=== PATIENT | female | born 1965 | race Caucasian/White ===

== ENCOUNTER → 2017-04-28 | Outpatient (CLI) | payer OTHER ==
[~2017-04-28] MED LIST: GABA1CAP4 PO; INSPMPHMLG; LEVO100T PO
[2017-04-28 15:31] LABS: BASO % 0.4 %; BASO ABS # 0.03 K/uL (0-0.2); EOS % 0.9 %; IG% 0.2 %; LYMPH % 25.2 %; LYMPH ABS # 2.05 K/uL (1.2-3.4); MEAN PLATELET VOLUME 10.2 fL (7.4-10.4); MONO % 8.1 %; NEUT % 65.2 %; PLATELET COUNT 247 K/uL (130-400); RED BLOOD COUNT 4.42 M/uL (4.2-5.4); WHITE BLOOD COUNT 8.13 K/uL (4.8-10.8)
[2017-04-28 15:44] LABS: COMPLETE YES; MEAN CORPUSCULAR HGB CONC 33.7 g/dl (32-36)
[2017-04-28 16:01] LABS: ALKALINE PHOSPHATASE 120 U/L (45-117); ALT/SGPT 27 U/L (12-78); AMYLASE 30 U/L (25-115); AST/SGOT 13 U/L (15-37); BLOOD UREA NITROGEN 13 mg/dl (7-18); BUN/CREATININE RATIO 15.9 (10-20); CALCIUM 9.5 mg/dl (8.5-10.1); CARBON DIOXIDE 28 mmol/L (21-32); CHLORIDE 105 mmol/L (98-107); CREATININE 0.83 mg/dl (0.60-1.20); GLUCOSE 132 mg/dl (70-99); POTASSIUM 4.1 mmol/L (3.5-5.1); SODIUM 142 mmol/L (136-145)
== END | disposition home or self-care (01) ==
LOC: C.LAB 14:59
PROVIDERS: ATTEND Family Medicine
DX: R10.9 Unspecified abdominal pain (principal); R19.7 Diarrhea, unspecified

== ENCOUNTER → 2017-10-17 | Outpatient (CLI) | payer OTHER ==
[~2017-10-17] MED LIST changes: +GABA-1219 PO; -GABA1CAP4 PO
--- NOTE | 2017-10-17 14:52 | DIAGNOSTIC IMAGING REPORT ---
L FOOT MIN 3 VIEWS CLINICAL HISTORY: 52 years-old Female presenting with LEFT FOOT PAIN. TECHNIQUE: Frontal, oblique, and lateral views of the left foot were obtained. COMPARISON: Comparison made to plain radiographs of the right foot from 2016. FINDINGS: No acute fracture or malalignment. No advanced degenerative change. No radiographic soft tissue abnormality. IMPRESSION: No acute osseous injury. Electronically signed by: Duane Mora M.D. 10/17/2017 2:51 PM Dictated Date/Time: 10/17/2017 2:50 PM
== END | disposition home or self-care (01) ==
LOC: C.RDSM 14:35
PROVIDERS: ATTEND Physician Assistant
DX: M79.672 Pain in left foot (principal)

== ENCOUNTER → 2017-10-26 | Outpatient (CLI) | payer OTHER ==
--- NOTE | 2017-10-26 15:40 | DIAGNOSTIC IMAGING REPORT ---
RIGHT HINDFOOT MRI HISTORY: RIGHT ANKLE PAIN TECHNIQUE: Multiplanar multisequence MRI of the right hindfoot was performed without the use of intravenous contrast. COMPARISON STUDY: Outside hospital right foot CT 10/19/2017. Right hindfoot MRI 09/03/2015. FINDINGS: Small amount increased signal within the distal/lateral to the Achilles tendon insertion. This is consistent with focal partial tear/tendinopathy at the distal insertion of the Achilles. There is also trace fluid surrounding the distal Achilles tendon which is similar to the prior study. Small amount of fluid at the retrocalcaneal bursa consistent with a bursitis. This is also unchanged. There is a new 8 mm cystic focus within the subcutaneous fat posterior to the heel. This favors a small ganglion cyst or superficial bursa. No fracture or dislocation within the hindfoot. Stable small focal defect within the posterior superior calcaneus measuring 7 mm. This contains soft tissue edema. This results in focal protrusion of the posterior superior corner of the calcaneus along the lateral side where the edema is located. 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 The plantar fascia is intact. No fracture or dislocation within the ankle/hindfoot. The extensor and peroneal tendons are intact. Focal thickening, increased signal, and a split tear at the distal posterior tibialis tendon. The medial and lateral stabilizing tendons of the ankle are intact. IMPRESSION: 1. Above findings at the posterior calcaneus and retrocalcaneal soft tissues including the distal insertion of the Achilles tendon is consistent with Naresh's deformity. This is slightly progressed. 2. There is also been interval development of a septated 8 mm cystic focus within the retrocalcaneal subcutaneous soft tissues. This favors a small ganglion cyst or bursa. Electronically signed by: Hermes Diehl M.D. 10/26/2017 3:38 PM Dictated Date/Time: 10/26/2017 3:27 PM
== END | disposition home or self-care (01) ==
LOC: C.MRI 14:36
PROVIDERS: ATTEND Physical Medicine & Rehabilitation Sports Medicine
DX: M79.671 Pain in right foot (principal); M79.672 Pain in left foot; Z88.6 Allergy status to analgesic agent